=== PATIENT | female | born 1985 | race Native Hawaiian/Other Pacific Islander ===

== ENCOUNTER 2019-09-23 15:16 | Emergency (ER) | payer MEDICAID, OTHER ==
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
[2019-09-23 20:18] LABS: INR 1.02 (0.87-1.13)
[2019-09-23 20:19] LABS: Partial Thromboplastin Time 25.1 Sec. (24.2-36.6)
[2019-09-23 20:31] LABS: Alanine Aminotransferase 11 units/L (7-56); Albumin 4.3 g/dL (3.9-5); BUN/Creatinine Ratio 30; Blood Urea Nitrogen 12 mg/dL (7-17); Hemolysis Index 7
[2019-09-23 21:10] LABS: HCG Qualitative,Urine Negative (Negative)
[2019-09-23 21:16] LABS: Bilirubin,Urine NEG (Negative); Blood,Urine LG (Negative); Color,Urine Yellow (Yellow); Mucus,Urine 2+ /HPF; Urobilinogen,Urine < 2.0 mg/dL (<2.0)
[2019-09-23 21:18] LABS: RBC,Urine > 182.0 /HPF (0.0-6.0)
[2019-09-23 21:18] LABS: Basophils # (Auto) 0.1 K/mm3 (0.0-0.1); Basophils % (Auto) 0.6 % (0.0-1.8); Eosinophils % (Auto) 0.2 % (0.0-4.3); Hemoglobin 9.1 gm/dl (10.1-14.3); Lymphocytes # (Auto) 2.6 K/mm3 (1.2-5.4); Lymphocytes % (Auto) 27.5 % (13.4-35.0); Mean Corpuscular HGB Conc 30 % (30-34); Monocytes # (Auto) 0.6 K/mm3 (0.0-0.8); Platelet Count 352 K/mm3 (140-440); Red Blood Count 4.94 M/mm3 (3.65-5.03)
[2019-09-23 21:21] LABS: Mean Corpuscular Volume 61 fl (79-97); Red Cell Distribution Width 20.4 % (13.2-15.2)
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
[2019-09-23 23:00] VITALS: BP 119/70
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
== END 2019-09-24 01:26 | disposition home or self-care (01) ==
LOC: ED 15:16
DX: M54.5 Low back pain (principal); R51 Headache; D64.9 Anemia, unspecified; M79.641 Pain in right hand; N93.9 Abnormal uterine and vaginal bleeding, unspecified; V89.0XXA Person injured in unspecified motor-vehicle accident, nontraffic, initial encounter; Y93.89 Activity, other specified; Y92.410 Unspecified street and highway as the place of occurrence of the external cause; Y99.8 Other external cause status
CPT/HCPCS: 36415; 74177; 76830; 76856; 80053; 81001; 81025; 85025; 85610; 85730; 87086; 99284; Q9967